=== PATIENT | male | born 1990 | race Caucasian/White ===

== ENCOUNTER 2018-02-27 10:49 | Emergency (ER) | payer MEDICAID ==
[~2018-02-27] VITALS: Ht 170.2 cm; Wt 100.0 kg
[2018-02-27 12:11] VITALS: BP 148/92
[2018-02-27 12:36] LABS: ANION GAP 11 mmol/L (8-16); CALCIUM, TOTAL 8.9 mg/dL (8.8-10.5); CARBON DIOXIDE 24 mmol/L (22-29); CHLORIDE 101 mmol/L (98-107); CREATININE 1.11 mg/dL (0.60-1.30); GLOMERULAR FILTR. RATE CALC > 60 mL/min (>60); GLUCOSE,RANDOM 107 mg/dL (70-110); POTASSIUM 4.1 mmol/L (3.5-5.1); SODIUM SERUM 136 mmol/L (136-145); UREA NITROGEN, BLOOD 11 mg/dL (7-18)
[2018-02-27 12:43] LABS: BASOPHILS % (AUTO) 0.6 % (0.0-2.0); EOSINOPHILS % (AUTO) 2.1 % (1.0-6.0); HEMATOCRIT 45.2 % (41-53); HEMOGLOBIN 15.8 g/dL (13.5-17.5); LYMPHOCYTES # (AUTO) 1.7 K/uL (1.0-4.8); LYMPHOCYTES % (AUTO) 25.2 % (22.0-44.0); MEAN CORPUSCULAR HEMOGLOBIN 29.1 pg (26.0-34.0); MEAN CORPUSCULAR HGB CONC 34.9 G/dL (31.0-37.0); MEAN CORPUSCULAR VOLUME 83 fL (80-100); MONOCYTES # (AUTO) 0.5 K/uL (0.1-1.0); MONOCYTES % (AUTO) 7.9 % (2.0-9.0); NEUTROPHILS # (AUTO) 4.4 K/uL (1.8-7.7); NEUTROPHILS % (AUTO) 64.2 % (40.0-70.0); PLATELET COUNT (AUTO) 295 K/uL (150-450); RED BLOOD CELL COUNT(AUTO) 5.43 MIL/uL (4.50-5.90); RED CELL DISTRIBUTION WIDTH 13.7 % (11.5-14.5)
[2018-02-27 13:07] LABS: ALANINE AMINOTRANSFERASE 85 U/L (12-78); ALBUMIN 4.1 g/dL (3.4-5.0); ALKALINE PHOSPHATASE 81 U/L (46-116); ASPARTATE AMINOTRANSFERASE 43 U/L (15-37); BILIRUBIN,TOTAL 0.7 mg/dL (0.1-1.0); CKMB RELATIVE INDEX 2.9 % (0.0-4.0); CREATINE KINASE, TOTAL 186 U/L (39-308); TOTAL PROTEIN, SERUM 7.6 g/dL (6.4-8.2)
[2018-02-27 13:49] LABS: CREATINE KINASE MB 5.4 ng/mL (0-5)
== END 2018-02-27 13:37 | disposition home or self-care (01) ==
LOC: EMS 10:51
DX: G57.93 Unspecified mononeuropathy of bilateral lower limbs (principal); R20.2 Paresthesia of skin
CPT/HCPCS: 36415; 80053; 82550; 82553; 85025; 85379; 99284; G0480

== ENCOUNTER 2024-08-29 13:10 | Emergency (ER) | payer MEDICAID ==
[~2024-08-29] VITALS: Ht 172.7 cm; Wt 95.5 kg
[2024-08-29 13:16] VITALS: TEMP 98
[2024-08-29] MEDS: ACETAMINOPHEN 500 MG TABLET PO ONE (14:32)
[2024-08-29] MEDS: LIDOCAINE 5% TRANSDERMAL PATCH TD ONE (14:32)
[2024-08-29] MEDS ORDERED: ACET-3385 PO (16:25)
[2024-08-29] MEDS ORDERED: LIDO700A15 TP (16:25)
[2024-08-29] MEDS ORDERED: IBUP-1492 PO (16:25)
[2024-08-29 16:46] VITALS: BP 110/66; PULSE 77; RESP 18; O2SAT 99
== END 2024-08-29 17:01 | disposition home or self-care (01) ==
LOC: EMS 13:10
DX: S22.31XA Fracture of one rib, right side, initial encounter for closed fracture (principal); R51.9 Headache, unspecified; R41.3 Other amnesia; V00.841A Fall from standing electric scooter, initial encounter; Y93.55 Activity, bike riding; Y92.89 Other specified places as the place of occurrence of the external cause; Y99.8 Other external cause status
CPT/HCPCS: 99284; 70450; 71101; 72125; G0238